=== PATIENT | female | born 1940 | race Caucasian/White ===

== ENCOUNTER 2021-11-14 08:43 | Emergency (ER) | payer OTHER ==
[~2021-11-14] VITALS: Ht 160 cm; Wt 60.3 kg
--- NOTE | 2021-11-14 08:55 | NUR ---
Patient to ER bed 7 to gown for evaluation. Side rails up. Report given to Sushil PERALTA.
[2021-11-14 09:00] VITALS: BP_SYST 126
--- NOTE | 2021-11-14 09:02 | NUR ---
ER at bedside examining patient.
[2021-11-14] MEDS ORDERED: HYDROcodone/ACETAMIN 5-325 MG TAB (NORCO/ VICODIN) PO ONE (11:00)
[2021-11-14] MEDS ORDERED: HYDR-3917 PO (11:09)
--- NOTE | 2021-11-14 11:58 | NUR ---
Patient given written and verbal discharge instructions and verbalizes understanding. ER MD discussed with patient the results and treatment provided. Patient in stable condition. Rx of given. Patient educated on pain management and to follow up with PMD. Pain Scale [2/10]. Opportunity for questions provided and answered. Medication side effect fact sheet provided.
--- NOTE | 2021-11-14 11:59 | NUR ---
A/OX4 VSS VERBALIZED UNDERSTANDING OF DC INSTRUCTIONS , ALL QUESTIONS ANSWERED, ASSISTANCE WITH WHEELCHAIR
== END 2021-11-14 11:59 | disposition home or self-care (01) ==
LOC: SED 08:43
DX: M75.31 Calcific tendinitis of right shoulder (principal)
CPT/HCPCS: 73030; 99283

== ENCOUNTER 2022-09-22 02:35 | Emergency (ER) | payer OTHER ==
[~2022-09-22] VITALS: Ht 157.5 cm; Wt 60.8 kg
[~2022-09-22 02:35] MED LIST: HYDR-3917 PO
[2022-09-22 02:40] VITALS: BP_SYST 170
[2022-09-22] MEDS ORDERED: HYDROcodone/ACETAMIN 5-325 MG TAB (NORCO/ VICODIN) PO ONE (03:00)
[2022-09-22 04:11] LABS: ANION GAP 11 (5-15); CALCIUM 8.1 mg/dL (8.4-11.0); CHLORIDE 97 mmol/L (98-107); GLUCOSE 95 mg/dL (70-99); UREA NITROGEN, BLOOD 12 mg/dL (8-21)
[2022-09-22 04:13] LABS: INR 1.7 (0.8-1.2); PROTHROMBIN TIME 16.7 SECS (9.5-12.5)
[2022-09-22 04:37] LABS: BASOPHILS % (AUTO) 0.4 % (0.0-2.0); EOSINOPHILS # (AUTO) 0.2 K/uL (0.0-0.4); EOSINOPHILS % (AUTO) 2.3 % (0.0-4.0); HEMATOCRIT 38.1 % (36-48); HEMOGLOBIN 12.9 g/dL (12.0-16.0); LYMPHOCYTES # (AUTO) 0.9 K/uL (1.0-5.5); LYMPHOCYTES % (AUTO) 12.1 % (20.5-51.5); MEAN CORPUSCULAR HEMOGLOBIN 32 pg (27-31); MEAN CORPUSCULAR HGB CONC 34 % (32-36); MEAN CORPUSCULAR VOLUME 94 fL (79.0-98.0); MONOCYTES # (AUTO) 0.9 K/uL (0.0-1.0); MONOCYTES % (AUTO) 12.1 % (1.7-9.3); NEUTROPHILS # (AUTO) 5.4 K/uL (1.8-7.7); NEUTROPHILS % (AUTO) 73.1 % (40.0-70.0); PLATELET COUNT (AUTO) 148 K/uL (130-430); RED BLOOD CELL COUNT(AUTO) 4.06 MIL/uL (4.2-6.2); RED CELL DISTRIBUTION WIDTH 14.3 % (9.0-15.0); WHITE BLOOD COUNT (AUTO) 7.4 K/uL (4.8-10.8)
[2022-09-22] MEDS ORDERED: HYDR-3917 PO (04:51)
[2022-09-22 05:05] VITALS: BP_SYST 138
== END 2022-09-22 05:06 | disposition home or self-care (01) ==
LOC: SED 02:35
DX: S52.021A Displaced fracture of olecranon process without intraarticular extension of right ulna, initial encounter for closed fracture (principal); I10 Essential (primary) hypertension; Z79.01 Long term (current) use of anticoagulants; Z79.899 Other long term (current) drug therapy; W18.40XA Slipping, tripping and stumbling without falling, unspecified, initial encounter; Y93.89 Activity, other specified; Y92.89 Other specified places as the place of occurrence of the external cause; Y99.8 Other external cause status
CPT/HCPCS: 36415; 70450-TC; 72125-TC; 76376; 80048; 85025; 85610-TC; 99284

== ENCOUNTER 2022-09-29 10:30 | Emergency (ER) | payer OTHER ==
[~2022-09-29] VITALS: Ht 157.5 cm; Wt 60.8 kg
--- NOTE | 2022-09-29 10:35 | NUR ---
Patient to ER bed 05 to gown for evaluation. Side rails up. Report given to KARYN FRAGA.
--- NOTE | 2022-09-29 10:38 | NUR ---
ER Dr. Yee at bedside examining patient.
[2022-09-29 10:40] VITALS: BP_SYST 148
--- NOTE | 2022-09-29 10:45 | NUR ---
Patient BIB spouse from home. Chief Complaint: Abdominal pain and constipation. Patient a&ox4 and stable. Patient denies allergies to food or medication. Patient has hx of right arm fracture, and has recently been started on opioid for pain and abdominal discomfort started immediately after per patient.
[2022-09-29] MEDS ORDERED: MAGN296S8 PO (11:10)
[2022-09-29] MEDS ORDERED: KETOROLAC TROMETHAMINE 60 MG/2 ML VIAL IM ONE (11:15)
--- NOTE | 2022-09-29 11:19 | NUR ---
Patient verified name and . Patient denies allergies. Patient agreed to the ordered dose of Toradol prior to administration. 60mg of ibuprofen was given IM in right ventral gluteal muscle. Patient tolerated well.
--- NOTE | 2022-09-29 12:09 | NUR ---
Patient given written and verbal discharge instructions and verbalizes understanding. ER MD Yee discussed with patient the results and treatment provided. Patient in stable condition. ID arm band removed. Patient educated on pain management and to follow up with PMD. Opportunity for questions provided and answered. Patient discharged a&ox4 and stable walking out with spouse.
== END 2022-09-29 12:09 | disposition home or self-care (01) ==
LOC: SED 10:30
DX: S52.021A Displaced fracture of olecranon process without intraarticular extension of right ulna, initial encounter for closed fracture (principal); K59.00 Constipation, unspecified; R10.9 Unspecified abdominal pain; I10 Essential (primary) hypertension; Z79.899 Other long term (current) drug therapy; X58.XXXA Exposure to other specified factors, initial encounter; Y93.89 Activity, other specified; Y92.89 Other specified places as the place of occurrence of the external cause; Y99.8 Other external cause status
CPT/HCPCS: 99283; 96372; J1885

== ENCOUNTER 2022-10-01 10:54 | Inpatient (IN) | payer OTHER ==
[~2022-10-01] VITALS: Ht 152.4 cm; Wt 59.0 kg
[~2022-10-01 10:54] MED LIST changes: +MAGN296S8 PO
[2022-10-01 11:03] VITALS: BP_SYST 152
--- NOTE | 2022-10-01 11:15 | NUR ---
RECEIVED PT FROM FABIAN PETERSON. PT BIB FOR C/O LOWER BACK PAIN. ASSUMED CARE.
[2022-10-01] MEDS ORDERED: dilTIAZem HCL IVP 5 MG/ML VIAL IVP ONE (11:30)
--- NOTE | 2022-10-01 11:32 | NUR ---
AT BEDSIDE TO ASSESS PT.
[2022-10-01 11:55] LABS: BASOPHILS % (AUTO) 0.2 % (0.0-2.0); EOSINOPHILS % (AUTO) 0.2 % (0.0-4.0); HEMATOCRIT 38.5 % (36-48); HEMOGLOBIN 13.4 g/dL (12.0-16.0); LYMPHOCYTES # (AUTO) 0.3 K/uL (1.0-5.5); LYMPHOCYTES % (AUTO) 3.3 % (20.5-51.5); MEAN CORPUSCULAR HEMOGLOBIN 32 pg (27-31); MEAN CORPUSCULAR HGB CONC 35 % (32-36); MEAN CORPUSCULAR VOLUME 93 fL (79.0-98.0); MONOCYTES # (AUTO) 0.9 K/uL (0.0-1.0); MONOCYTES % (AUTO) 9.8 % (1.7-9.3); NEUTROPHILS # (AUTO) 7.7 K/uL (1.8-7.7); NEUTROPHILS % (AUTO) 86.5 % (40.0-70.0); PLATELET COUNT (AUTO) 224 K/uL (130-430); RED BLOOD CELL COUNT(AUTO) 4.16 MIL/uL (4.2-6.2); RED CELL DISTRIBUTION WIDTH 13.9 % (9.0-15.0); WHITE BLOOD COUNT (AUTO) 8.9 K/uL (4.8-10.8)
[2022-10-01 12:02] LABS: ANION GAP 11 (5-15); CALCIUM 8.3 mg/dL (8.4-11.0); CHLORIDE 94 mmol/L (98-107); CREATININE 0.58 mg/dL (0.55-1.30); GLUCOSE 112 mg/dL (70-99); UREA NITROGEN, BLOOD 11 mg/dL (8-21)
[2022-10-01 12:07] LABS: INR 1.9 (0.8-1.2); PROTHROMBIN TIME 19.4 SECS (9.5-12.5)
[2022-10-01 12:08] LABS: ALANINE AMINOTRANSFERASE 19 U/L (12-78); ALBUMIN 3.2 g/dL (3.4-4.8); ASPARTATE AMINOTRANSFERASE 24 U/L (10-37); TOTAL BILIRUBIN 2.2 mg/dL (0.0-1.0)
[2022-10-01] MEDS ORDERED: HYDR-4037 PO (15:13)
[2022-10-01] MEDS ORDERED: LEVO25TA7 PO (15:13)
[2022-10-01] MEDS ORDERED: WARF1TAB84 PO (15:13)
[2022-10-01] MEDS ORDERED: METO25TA3 PO (15:13)
--- NOTE | 2022-10-01 15:20 | NUR ---
Medication reconciliation completed with information provided by patient. Any prior medication reconciliation on file was reviewed and corrected.
--- NOTE | 2022-10-01 16:01 | NUR ---
DR. DAVIDSON AT BEDSIDE TO ASSESS PT.
[2022-10-01] MEDS ORDERED: HYDROcodone/ACETAMIN 5-325 MG TAB (NORCO/ VICODIN) PO PRN (16:15)
--- NOTE | 2022-10-01 17:12 | NUR ---
Admit bed requested Patient will be admitted to care of . Admitted to TELE unit. Diagnosis FALL Inpatient (Yes or No) Y Observation (Yes or No) N Orientation concerns or request close to nursing station (Yes or No) N Covid Status NA On vent or bipap N Isolation requirements N Needs a sitter N From Home (Yes or if No enter name of facility) Y Requires Dialysis (Yes or No) N Med Rec Completed (Yes of No) Y
--- NOTE | 2022-10-01 17:13 | NUR ---
Admit bed requested Patient will be admitted to care of . Admitted to TELEMETRY unit. Diagnosis FALL Inpatient (Yes or No) YES Observation (Yes or No) NO Orientation concerns or request close to nursing station (Yes or No) NO Covid Status N/A On vent or bipap NO Isolation requirements NONE Needs a sitter NO From Home (Yes or if No enter name of facility) NO Requires Dialysis (Yes or No) NO Med Rec Completed (Yes of No) YES
--- NOTE | 2022-10-01 18:30 | NUR ---
[facility] Admission Nurse Notes: Patient laying in bed. A/O x 2, patient occasionally moaning when touched. Patient breathing even on room air. Pain and mild distress, no SOB. Carlos Enrique is at bedside. Bed is locked in lowest position. Call light within reach, all needs met, will continue with plan of care.
[2022-10-01 18:35] VITALS: BP_SYST 154
--- NOTE | 2022-10-01 18:36 | NUR ---
Patient will be admitted to care of Dr. Pierce. Admitted to telemetry unit. Will go to room 105a. Belongings list completed. Complete and up to date summary report printed. SBAR report to be given at bedside with opportunity for questions.
--- NOTE | 2022-10-01 18:44 | NUR ---
Patient will be admitted to care of DR. DAVIDSON. Admitted to TELEMETRY unit. Will go to room 105A. Belongings list completed. Complete and up to date summary report printed. SBAR report to be given at bedside with opportunity for questions.
[2022-10-01] MEDS ORDERED: WARFARIN SODIUM 1 MG TABLET PO ONE (19:00)
--- NOTE | 2022-10-01 19:25 | NUR ---
Closing Nurse Notes: Patient stable, A/O x2, Indonesian speaking. Patient breathing even and unlabored on room air. Moderate pain with distress, no SOB. Bed is locked in lowest position. at bedside. Call light within reach, all needs met, will endorse pain and elevated blood pressure results to barking machine feeder nurse RN.
[2022-10-01 20:00] VITALS: BP_SYST 156
[2022-10-01 20:22] LABS: PROTHROMBIN TIME 20.5 SECS (9.5-12.5)
[2022-10-01] MEDS: hydrALAZINE HCL 10 MG TABLET PO SCH (21:26)
[2022-10-01 23:56] VITALS: BP_SYST 123
--- NOTE | 2022-10-02 02:44 | NUR ---
Consultation Paged Reason for Consultation: fx humerus and vertebrae Was consult called: Y Person who was notified: Sophia Consulting Physician: Vladislav Montenegro Ordering Physician: Dr. Pierce
[2022-10-02 05:11] LABS: BASOPHILS % (AUTO) 0.6 % (0.0-2.0); EOSINOPHILS # (AUTO) 0.1 K/uL (0.0-0.4); EOSINOPHILS % (AUTO) 1.1 % (0.0-4.0); HEMATOCRIT 36.4 % (36-48); HEMOGLOBIN 12.7 g/dL (12.0-16.0); LYMPHOCYTES # (AUTO) 0.6 K/uL (1.0-5.5); MEAN CORPUSCULAR HEMOGLOBIN 32 pg (27-31); MEAN CORPUSCULAR HGB CONC 35 % (32-36); MEAN CORPUSCULAR VOLUME 92 fL (79.0-98.0); MONOCYTES # (AUTO) 0.9 K/uL (0.0-1.0); MONOCYTES % (AUTO) 13.3 % (1.7-9.3); NEUTROPHILS # (AUTO) 5.2 K/uL (1.8-7.7); PLATELET COUNT (AUTO) 228 K/uL (130-430); RED BLOOD CELL COUNT(AUTO) 3.95 MIL/uL (4.2-6.2); RED CELL DISTRIBUTION WIDTH 13.7 % (9.0-15.0); WHITE BLOOD COUNT (AUTO) 6.8 K/uL (4.8-10.8)
[2022-10-02 06:02] LABS: PROTHROMBIN TIME 20.1 SECS (9.5-12.5)
[2022-10-02 06:06] LABS: ANION GAP 10 (5-15); CALCIUM 8.1 mg/dL (8.4-11.0); CHLORIDE 98 mmol/L (98-107); CREATININE 0.51 mg/dL (0.55-1.30); GLUCOSE 79 mg/dL (70-99); UREA NITROGEN, BLOOD 15 mg/dL (8-21)
[2022-10-02 08:00] VITALS: BP_SYST 131
--- NOTE | 2022-10-02 08:01 | NUR ---
CALLED ATTENDING MD DR. DAVIDSON FOR THE SECOND TIME RE: CARDIOLOGY CONSULT. Addendum: 10/02/22 at 0802 by Sarah Vyas [place]/ SPOKE TO MIKE.
--- NOTE | 2022-10-02 08:02 | NUR ---
TEXTED ATTENDING MD DR DAVIDSON, RE: CARDIOLOGY CONSULT.
[2022-10-02] MEDS: hydrALAZINE HCL 10 MG TABLET PO SCH ×2 (08:07→21:16)
[2022-10-02] MEDS ORDERED: *LOVENOX 1MG/KG Q12H/PHARMACY XX PRN (08:30)
[2022-10-02] MEDS ORDERED: METOPROLOL TARTRATE 5 MG/5 ML VIAL IVP ONE (08:30)
[2022-10-02] MEDS ORDERED: POTASSIUM CHLORIDE 40 MEQ in NS 250 ML IV ONE (08:30)
[2022-10-02] MEDS ORDERED: METOPROLOL SUCCINATE 25 MG TAB.SR.24H (TOPROL XL) PO SCH (09:00)
--- NOTE | 2022-10-02 09:49 | NUR ---
CARDIOLOGY CONSULT WITH DR BENITEZ WAS ORDERED BY DR DAVIDSON, ATTENDING MD RE: CARDIAC CLEARANCE AND CARDIAC ARRYTHMIAS.
--- NOTE | 2022-10-02 10:21 | NUR ---
CONSULTATION: REASON FOR CONSULT: UNCONTROLLED A-FIB CONSULTING PHYSICIAN: ELI ORDERED BY: STUART SPOKE WITH GERMAINE [phone]
[2022-10-02 11:13] VITALS: BP_SYST 140
[2022-10-02] MEDS ORDERED: MELOXICAM 7.5 MG TABLET PO ONE (13:00)
[2022-10-02] MEDS ORDERED: LIDOCAINE PATCH 5% 1 EA TP ONE (13:00)
--- NOTE | 2022-10-02 14:26 | NUR ---
>>>PT NOTES<<< HOLD PT EVAL AT THIS TIME PER RN DUE TO PENDING ORTHOPEDIC SURGERY.
[2022-10-02 15:01] VITALS: BP_SYST 112
--- NOTE | 2022-10-02 18:12 | NUR ---
Received pt arousable but drowsy. SpO2 taken on finger was in the 70s. On ear in the 90s. Proventil given but pt remains drowsy. Dressing change with optifoam done on sacrum and R arm. Brusing on R flank. Pictures done for sacrum, R arm, and R flank. at bedside.
[2022-10-02] MEDS: METOPROLOL TARTRATE 5 MG/5 ML VIAL IVP PRN (18:26)
--- NOTE | 2022-10-02 18:27 | NUR ---
Received pt with HR in 140s. Scheduled Toprolol XL 25mg given and additional 5mg IVP Lopressor. HR came down to low 100s. Pt started on cardiac diet. 40meq K rider given for 3.[address] Holloway saw pt and has not given cardiac clearance for surgery. At 1800 BP in 140s-150s again. Paged Dr Holloway. He increased Tropolol XL to 25mg BID and ordered PRN Lopressor 2.5mg Q6 for HR greater than 120. Will continue to monitor.
[2022-10-02 20:00] VITALS: BP_SYST 116
[2022-10-02] MEDS: METOPROLOL SUCCINATE 25 MG TAB.SR.24H (TOPROL XL) PO SCH (21:17)
[2022-10-03 00:20] LABS: BILIRUBIN,URINE NEGATIVE (NEGATIVE); CLARITY/URINE CLOUDY (CLEAR); COLOR,URINE YELLOW (YELLOW); GLUCOSE,URINE NEGATIVE (NEGATIVE); KETONES,URINE TRACE (NEGATIVE); NITRITE, URINE NEGATIVE (NEGATIVE); PH,URINE 7.5 (5.0-8.0); PROTEIN URINE TRACE (NEGATIVE)
[2022-10-03 00:29] LABS: BLOOD, URINE TRACE (NEGATIVE)
[2022-10-03 00:30] LABS: LEUKOCYTE ESTERASE ,URINE TRACE (NEGATIVE)
[2022-10-03 00:32] LABS: BACTERIA,URINE MANY /HPF (None Seen); TRIPLE PHOSPHATE CRYSTAL,UR 30-50 /HPF (None Seen)
[2022-10-03 01:14] VITALS: BP_SYST 115
[2022-10-03 05:12] LABS: BASOPHILS % (AUTO) 0.4 % (0.0-2.0); EOSINOPHILS # (AUTO) 0.1 K/uL (0.0-0.4); EOSINOPHILS % (AUTO) 1.5 % (0.0-4.0); HEMATOCRIT 38.1 % (36-48); HEMOGLOBIN 13.1 g/dL (12.0-16.0); LYMPHOCYTES # (AUTO) 0.6 K/uL (1.0-5.5); MEAN CORPUSCULAR HEMOGLOBIN 32 pg (27-31); MEAN CORPUSCULAR HGB CONC 34 % (32-36); MEAN CORPUSCULAR VOLUME 92 fL (79.0-98.0); MONOCYTES # (AUTO) 1.2 K/uL (0.0-1.0); MONOCYTES % (AUTO) 14.9 % (1.7-9.3); NEUTROPHILS # (AUTO) 6.4 K/uL (1.8-7.7); NEUTROPHILS % (AUTO) 76.2 % (40.0-70.0); PLATELET COUNT (AUTO) 256 K/uL (130-430); RED BLOOD CELL COUNT(AUTO) 4.14 MIL/uL (4.2-6.2); RED CELL DISTRIBUTION WIDTH 13.8 % (9.0-15.0); WHITE BLOOD COUNT (AUTO) 8.4 K/uL (4.8-10.8)
[2022-10-03 05:38] LABS: ANION GAP 8 (5-15); CHLORIDE 99 mmol/L (98-107); CREATININE 0.52 mg/dL (0.55-1.30); GLUCOSE 88 mg/dL (70-99); UREA NITROGEN, BLOOD 19 mg/dL (8-21)
[2022-10-03 05:56] LABS: INR 2.2 (0.8-1.2); PROTHROMBIN TIME 21.5 SECS (9.5-12.5)
--- NOTE | 2022-10-03 06:00 | NUR ---
RT FA REMAINS IN SLING FINGERS ARE WARM TO TOUCH SPENT A FAIR NIGHT
[2022-10-03 07:20] VITALS: BP_SYST 131
[2022-10-03 08:00] VITALS: BP_SYST 131
[2022-10-03] MEDS: HYDROcodone/ACETAMIN 5-325 MG TAB (NORCO/ VICODIN) PO PRN (08:05)
[2022-10-03] MEDS: METOPROLOL SUCCINATE 25 MG TAB.SR.24H (TOPROL XL) PO SCH ×2 (08:06→20:08)
[2022-10-03] MEDS: hydrALAZINE HCL 10 MG TABLET PO SCH ×2 (08:07→20:08)
[2022-10-03] MEDS: LIDOCAINE PATCH 5% 1 EA TP SCH (08:09)
[2022-10-03] MEDS ORDERED: PHYTONADIONE Non-Formulary 5 MG TABLET PO ONE (08:30)
[2022-10-03] MEDS ORDERED: MELOXICAM 7.5 MG TABLET PO SCH (09:00)
[2022-10-03] MEDS ORDERED: PHYTONADIONE (Vitamin K) Oral Solution PO ONE ×3 (09:45→11:00)
[2022-10-03] MEDS ORDERED: POTASSIUM CHLORIDE 20 MEQ TAB.PRT.SR PO ONE (10:15)
[2022-10-03] MEDS ORDERED: FUROSEMIDE 20 MG/2 ML VIAL IVP ONE (10:15)
[2022-10-03 11:25] VITALS: BP_SYST 94
[2022-10-03 13:03] LABS: BASOPHILS % (AUTO) 0.5 % (0.0-2.0); EOSINOPHILS # (AUTO) 0.1 K/uL (0.0-0.4); EOSINOPHILS % (AUTO) 1.1 % (0.0-4.0); HEMATOCRIT 40.7 % (36-48); HEMOGLOBIN 13.9 g/dL (12.0-16.0); LYMPHOCYTES # (AUTO) 0.7 K/uL (1.0-5.5); LYMPHOCYTES % (AUTO) 7.6 % (20.5-51.5); MEAN CORPUSCULAR HEMOGLOBIN 32 pg (27-31); MEAN CORPUSCULAR HGB CONC 34 % (32-36); MEAN CORPUSCULAR VOLUME 93 fL (79.0-98.0); MONOCYTES # (AUTO) 0.8 K/uL (0.0-1.0); MONOCYTES % (AUTO) 7.8 % (1.7-9.3); NEUTROPHILS # (AUTO) 8.2 K/uL (1.8-7.7); PLATELET COUNT (AUTO) 260 K/uL (130-430); RED BLOOD CELL COUNT(AUTO) 4.37 MIL/uL (4.2-6.2); RED CELL DISTRIBUTION WIDTH 13.9 % (9.0-15.0); WHITE BLOOD COUNT (AUTO) 9.8 K/uL (4.8-10.8)
[2022-10-03 13:13] LABS: ANION GAP 6 (5-15); CALCIUM 8.1 mg/dL (8.4-11.0); CHLORIDE 96 mmol/L (98-107); CREATININE 0.66 mg/dL (0.55-1.30); GLUCOSE 111 mg/dL (70-99); UREA NITROGEN, BLOOD 21 mg/dL (8-21)
--- NOTE | 2022-10-03 14:55 | NUR ---
PHYSICAL THERAPY CO-SIGN The Physical Therapy Progress Notes documented by Easement Worker have been reviewed. Reviewed/Co-Signed by: Brian Schwab Documentation Done by:RONAK ORLANDO Addendum: 10/03/22 at 1455 by Brian Schwab PT Amended: Links added.
[2022-10-03 15:15] VITALS: BP_SYST 101
--- NOTE | 2022-10-03 18:05 | NUR ---
No runs of sinus tach today. Vitamin K given for INR of 2.2. TLSO was delivered today. Pt given Hope this am and since has had no complaints of pain. Pt will have surgery tomorrow pending cardiac clearance.
--- NOTE | 2022-10-03 19:15 | NUR ---
OPENING NOTE REPORT RECEIVED FROM DAYSHIFT NURSE. PATIENT RECEIVED LYING IN BED, AWAKE, WATCHING TV, NO S/S OF ACUTE DISTRESS, PATIENT DENIES PAIN, STATES SHE IS COMFORTABLE. BREATHING EVEN AND UNLABORED. IV SITE PATENT, NO SIGNS OF INFILTRATION OR INFECTION NOTED. SLIGHT ATTACHED TO RIGHT ARM. CALL LIGHT WITH PATIENT. BED ALARM ON. BED IS LOCKED AND AT LOWEST POSITION. WILL CONTINUE TO MONITOR.
[2022-10-03 20:00] VITALS: BP_SYST 115
--- NOTE | 2022-10-03 23:00 | NUR ---
ROUNDS PATIENT IN BED, NO SIGNS OF DISCOMFORT. RESTING. CHEST RISE AND FALL EVEN BILATERALLY. ALL NEEDS MET. WILL MONITOR.
[2022-10-03] MEDS: METOPROLOL TARTRATE 5 MG/5 ML VIAL IVP PRN (23:02)
[2022-10-04] VITALS: BP_SYST 125
--- NOTE | 2022-10-04 03:00 | NUR ---
ROUNDS NO CHANGE FROM PREVIOUS. ALL NEEDS MET. WILL MONITOR.
[2022-10-04 05:45] LABS: BASOPHILS % (AUTO) 0.6 % (0.0-2.0); EOSINOPHILS # (AUTO) 0.3 K/uL (0.0-0.4); EOSINOPHILS % (AUTO) 3.8 % (0.0-4.0); HEMOGLOBIN 12.8 g/dL (12.0-16.0); LYMPHOCYTES # (AUTO) 0.7 K/uL (1.0-5.5); MEAN CORPUSCULAR HEMOGLOBIN 32 pg (27-31); MEAN CORPUSCULAR HGB CONC 35 % (32-36); MEAN CORPUSCULAR VOLUME 92 fL (79.0-98.0); MONOCYTES # (AUTO) 0.9 K/uL (0.0-1.0); NEUTROPHILS # (AUTO) 5.4 K/uL (1.8-7.7); NEUTROPHILS % (AUTO) 73.6 % (40.0-70.0); PLATELET COUNT (AUTO) 241 K/uL (130-430); RED BLOOD CELL COUNT(AUTO) 4.01 MIL/uL (4.2-6.2); RED CELL DISTRIBUTION WIDTH 14.1 % (9.0-15.0); WHITE BLOOD COUNT (AUTO) 7.4 K/uL (4.8-10.8)
[2022-10-04 05:58] LABS: ANION GAP 6 (5-15); CALCIUM 7.7 mg/dL (8.4-11.0); CHLORIDE 99 mmol/L (98-107); CREATININE 0.44 mg/dL (0.55-1.30); GLUCOSE 86 mg/dL (70-99); UREA NITROGEN, BLOOD 17 mg/dL (8-21)
[2022-10-04 05:59] LABS: INR 1.3 (0.8-1.2); PROTHROMBIN TIME 13.1 SECS (9.5-12.5)
--- NOTE | 2022-10-04 06:05 | NUR ---
CLOSING NOTE PATIENT IN BED, NO S/S OF ACUTE DISTRESS. BREATHING EVEN AND UNLABORED. IV SITE PATENT, NO SIGNS OF INFILTRATION OR INFECTION NOTED. SLING ON RIGHT ARM ATTACHED. ALL NEEDS MET THROUGHOUT SHIFT. FALL, SAFETY PRECAUTIONS MAINTAINED THROUGHOUT SHIFT. WILL CONTINUE TO MONITOR UNTIL PATIENT CARE IS ENDORSED TO ONCOMING DAYSHIFT NURSE.
[2022-10-04 08:00] VITALS: BP_SYST 123
[2022-10-04] MEDS: hydrALAZINE HCL 10 MG TABLET PO SCH ×2 (09:00→20:23)
[2022-10-04] MEDS: LIDOCAINE PATCH 5% 1 EA TP SCH (09:10)
[2022-10-04] MEDS: METOPROLOL SUCCINATE 25 MG TAB.SR.24H (TOPROL XL) PO SCH ×2 (10:03→20:22)
[2022-10-04 11:07] VITALS: BP_SYST 127
[2022-10-04] MEDS ORDERED: KETOROLAC TROMETHAMINE 30 MG VIAL ONE (13:00)
[2022-10-04] MEDS ORDERED: PROPOFOL 200MG/ 20ML VIAL (DIPRIVAN) IV ONE (13:00)
[2022-10-04] MEDS ORDERED: MIDAZOLAM HCL 2 MG/2 ML VIAL (VERSED) ONE (13:00)
[2022-10-04] MEDS ORDERED: ONDANSETRON HCL 4 MG/2 ML VIAL ONE (13:00)
[2022-10-04] MEDS ORDERED: DESFLURANE 15 MIN GAS INH ONE (13:00)
[2022-10-04] MEDS ORDERED: LIDOCAINE 2%, 20 ML MDV ONE (13:00)
[2022-10-04] MEDS ORDERED: DEXAMETHASONE SOD PHOSPHATE 4 MG/ML VIAL ONE (13:00)
[2022-10-04] MEDS ORDERED: ROCURONIUM BROMIDE 10 MG/ML (ZEMURON) ONE (13:00)
[2022-10-04] MEDS ORDERED: cefTRIAXone 1 GM VIAL ONE (13:00)
[2022-10-04] MEDS ORDERED: LR 1,000 ML IV.SOLN IV ONE (13:00)
[2022-10-04] MEDS ORDERED: METOPROLOL TARTRATE 5 MG/5 ML VIAL ONE (13:00)
[2022-10-04] MEDS ORDERED: cefTRIAXone 1 GM in D5W 50 ML IV SCH (13:00)
[2022-10-04] MEDS ORDERED: BUPIVACAINE /PF 0.25% 30 ML VIAL INJ ONE (13:00)
[2022-10-04] MEDS ORDERED: SUGAMMADEX SODIUM 200 MG/2 ML VIAL IV ONE (13:00)
[2022-10-04] MEDS ORDERED: HYDROmorphone 1 MG/ML INJ. CARTRIDGE IVP PRN ×2 (14:15)
[2022-10-04] MEDS ORDERED: METOCLOPRAMIDE HCL 10 MG/2 ML VIAL IVP PRN (14:15)
[2022-10-04] MEDS ORDERED: LABETALOL 100 MG/ 20ML VIAL IVP PRN (14:15)
[2022-10-04] MEDS ORDERED: MEPERIDINE HCL/PF 25 MG/ML DISP.SYRIN IVP PRN (14:15)
[2022-10-04 14:17] VITALS: BP_SYST 127
[2022-10-04] MEDS ORDERED: ACETAMINOPHEN I.V. 1000 MG 100 ML IV ONE (14:21)
--- NOTE | 2022-10-04 16:17 | NUR ---
Received pt back from surgery,S/P right elbow ORIF,right arm in splint with alek warp on dry and intact neurovascular check normal,wearing right arm sling,elevated RUE and NWB to RUE per post op order O2 sat 99% on 2L/NC,afib per telemetry hr 99-110's,no c/o pain or discomfort,IVF continue infusing needs attended,safety maintained.
[2022-10-04 16:45] VITALS: BP_SYST 142
--- NOTE | 2022-10-04 18:00 | NUR ---
HR up to 120's,BP 150/90,give lopressor 2.5 mg IV as prn order.
[2022-10-04] MEDS: LR 1,000 ML IV SCH (18:14)
[2022-10-04] MEDS: METOPROLOL TARTRATE 5 MG/5 ML VIAL IVP PRN (18:14)
[2022-10-04] MEDS: HYDROcodone/ACETAMIN 5-325 MG TAB (NORCO/ VICODIN) PO PRN (18:56)
--- NOTE | 2022-10-04 19:04 | NUR ---
HR decreased to 90-110,BP 116/68,pt c/o pain in right elbow,give norco 1 tab po as prn order for pain,voided pedro urine via purwick.report endorsed to restaurant shift supervisor nurse.
[2022-10-04 19:35] VITALS: BP_SYST 126
--- NOTE | 2022-10-04 19:35 | NUR ---
PM ASSESSMENT; -Pt is a/ox3, resting in bed. Pt denies any chest pain,pain,sob,or any acute distress. IVF infusing well, no s/s any infiltration noted. Discussed poc, pain mgmt, all safety measures with pt and spouse, they verbalized understanding. Fall precaution in place, bed alarmed, side rails x3, call light w/in reach. Drsg cdi of RUE with sling applied, pt denies any tingling,numbness, or pain, elevated with pillow. cont to monitor pt.
--- NOTE | 2022-10-05 00:20 | NUR ---
ROUNDS; -Pt is asleep. No s/s any acute distress noted. All safety measures in place. Call light w/in reach. Cont to monitor pt.
[2022-10-05 00:31] VITALS: BP_SYST 99
[2022-10-05] MEDS: LR 1,000 ML IV SCH (00:41)
--- NOTE | 2022-10-05 04:00 | NUR ---
ROUNDS; -Pt is asleep. No s/s any acute distress noted. All safety measures in place. Call light w/in reach. Cont to monitor pt.
--- NOTE | 2022-10-05 06:25 | NUR ---
CLOSING NOTES; -Pt is resting in bed comfortably. NO s/s any chest pain,pain,sob,or any acute distress noted. IVF infusing well, no s/s any infiltration noted. Fall precaution in place, bed alarmed, side rails x3, call light w/in reach. Drsg cdi of RUE with sling applied, pt denies any tingling,numbness, or pain, elevated with pillow. Pt's condition stable. will endorse to next nurse to continuity of care.
[2022-10-05 06:34] LABS: ANION GAP 9 (5-15); CALCIUM 8.2 mg/dL (8.4-11.0); CHLORIDE 98 mmol/L (98-107); CREATININE 0.55 mg/dL (0.55-1.30); GLUCOSE 127 mg/dL (70-99); UREA NITROGEN, BLOOD 18 mg/dL (8-21)
[2022-10-05 06:47] LABS: BASOPHILS % (AUTO) 0.1 % (0.0-2.0); HEMATOCRIT 37.8 % (36-48); HEMOGLOBIN 12.9 g/dL (12.0-16.0); LYMPHOCYTES # (AUTO) 0.4 K/uL (1.0-5.5); LYMPHOCYTES % (AUTO) 5.9 % (20.5-51.5); MEAN CORPUSCULAR HEMOGLOBIN 32 pg (27-31); MEAN CORPUSCULAR HGB CONC 34 % (32-36); MEAN CORPUSCULAR VOLUME 93 fL (79.0-98.0); MONOCYTES # (AUTO) 0.2 K/uL (0.0-1.0); MONOCYTES % (AUTO) 3.4 % (1.7-9.3); NEUTROPHILS # (AUTO) 5.9 K/uL (1.8-7.7); NEUTROPHILS % (AUTO) 90.6 % (40.0-70.0); PLATELET COUNT (AUTO) 259 K/uL (130-430); RED BLOOD CELL COUNT(AUTO) 4.07 MIL/uL (4.2-6.2); WHITE BLOOD COUNT (AUTO) 6.5 K/uL (4.8-10.8)
--- NOTE | 2022-10-05 07:30 | NUR ---
Initial note: report received from Teressa. patient is awake alert x3. Call light in reach. Bed in the lowest position and side rails x3 up. Assessment is done and vital checked. No pain or discomfort at this time. Will continue patient care.
[2022-10-05 08:00] VITALS: BP_SYST 141
[2022-10-05] MEDS: METOPROLOL SUCCINATE 25 MG TAB.SR.24H (TOPROL XL) PO SCH ×2 (08:48→21:37)
[2022-10-05] MEDS: hydrALAZINE HCL 10 MG TABLET PO SCH ×2 (08:49→21:37)
[2022-10-05] MEDS: LIDOCAINE PATCH 5% 1 EA TP SCH (08:49)
[2022-10-05 09:26] LABS: INR 1.2 (0.8-1.2)
--- NOTE | 2022-10-05 11:23 | NUR ---
Dietitian Recommendations * Continue regular diet * Ordered Ruy BID, orange flavor (provides 180 kcal and 5 g PRO) for muscle preservation GS, MPH, RD Please refer to RD Assessment for further details. Thanks! Addendum: 10/05/22 at [address] Amended: Links added.
[2022-10-05 11:52] VITALS: BP_SYST 136
--- NOTE | 2022-10-05 12:00 | NUR ---
Note: patient is awake alert x3. is at the bedside. No pain or discomfort at this time. Call light in reach. Bed in the lowest position and side rails x3 up. Will continue to monitor.
--- NOTE | 2022-10-05 13:14 | NUR ---
SNF inquiry sent out waiting for bed availability
[2022-10-05] MEDS: NORMAL SALINE 5 ML DISP.SYRIN IVF SCH ×2 (14:14→21:38)
--- NOTE | 2022-10-05 15:13 | NUR ---
CM: Late entry: spoke with KURT Duvall/[facility]: dcp to home with HH order has changed to snf placement. The order faxed to her as well.
[2022-10-05 16:53] VITALS: BP_SYST 130
--- NOTE | 2022-10-05 17:10 | NUR ---
Note: patient has fever 100.2. Called and spoke to Dr. Viky Higgins with Tylenol as needed order. Noted and carried out.
[2022-10-05] MEDS ORDERED: ACETAMINOPHEN 325 MG TABLET PO PRN (17:15)
[2022-10-05] MEDS: WARFARIN SODIUM 4 MG TABLET PO SCH (17:18)
--- NOTE | 2022-10-05 19:13 | NUR ---
Closing note: Reported to Teressa. patient is awake alert x4. is at the bedside. Bed in the lowest position and side rails x2 up. Call light in reach. Endorse to continue patient care.
[2022-10-05 19:25] VITALS: BP_SYST 142
--- NOTE | 2022-10-05 19:25 | NUR ---
PM ASSESSMENT; -Pt is a/ox3, resting in bed. Pt denies any chest pain,pain,sob,or any acute distress. IV site patent, no s/s any infiltration noted. Discussed poc, pain mgmt, all safety measures with pt and spouse, they verbalized understanding. Fall precaution in place, bed alarmed, side rails x3, call light w/in reach. Drsg cdi of RUE with sling applied, pt denies any tingling,numbness, or pain, elevated with pillow. cont to monitor pt.
--- NOTE | 2022-10-06 01:23 | NUR ---
ROUNDS; -Pt is asleep. No s/s any acute distress noted. All safety measures in place. Call light w/in reach. Cont to monitor pt.
[2022-10-06 01:39] VITALS: BP_SYST 147
[2022-10-06] MEDS ORDERED: Lidocaine Patch 5% TP (02:53)
[2022-10-06] MEDS ORDERED: ACT35 PO (02:53)
[2022-10-06] MEDS ORDERED: METO25TA3 PO (02:53)
[2022-10-06] MEDS ORDERED: WARF4TAB72 PO (02:53)
--- NOTE | 2022-10-06 04:15 | NUR ---
ROUNDS; -Pt is asleep. No s/s any acute distress noted. All safety measures in place. Call light w/in reach. Cont to monitor pt.
[2022-10-06] MEDS: NORMAL SALINE 5 ML DISP.SYRIN IVF SCH ×2 (05:11→13:19)
[2022-10-06] MEDS: HYDROcodone/ACETAMIN 5-325 MG TAB (NORCO/ VICODIN) PO PRN ×2 (05:42→21:01)
[2022-10-06] MEDS ORDERED: RISEDRONATE SODIUM 35 MG TABLET PO SCH (06:00)
--- NOTE | 2022-10-06 06:24 | NUR ---
CLOSING NOTES; -Pt is resting in bed comfortably. NO s/s any chest pain,pain,sob,or any acute distress noted. IV patent in place. Fall precaution in place, bed alarmed, side rails x3, call light w/in reach. Drsg cdi of RUE with sling applied, pt denies any tingling,numbness, or pain, elevated with pillow. Pt's condition stable. will endorse to next nurse to continuity of care.
[2022-10-06 06:59] LABS: ANION GAP 8 (5-15); CALCIUM 7.9 mg/dL (8.4-11.0); CHLORIDE 101 mmol/L (98-107); CREATININE 0.52 mg/dL (0.55-1.30); GLUCOSE 85 mg/dL (70-99); UREA NITROGEN, BLOOD 12 mg/dL (8-21)
[2022-10-06 07:20] LABS: BASOPHILS % (AUTO) 0.3 % (0.0-2.0); EOSINOPHILS # (AUTO) 0.1 K/uL (0.0-0.4); EOSINOPHILS % (AUTO) 0.8 % (0.0-4.0); HEMATOCRIT 35.8 % (36-48); HEMOGLOBIN 12.4 g/dL (12.0-16.0); LYMPHOCYTES # (AUTO) 0.7 K/uL (1.0-5.5); LYMPHOCYTES % (AUTO) 9.9 % (20.5-51.5); MEAN CORPUSCULAR HEMOGLOBIN 32 pg (27-31); MEAN CORPUSCULAR HGB CONC 35 % (32-36); MEAN CORPUSCULAR VOLUME 93 fL (79.0-98.0); MONOCYTES # (AUTO) 0.8 K/uL (0.0-1.0); NEUTROPHILS # (AUTO) 5.9 K/uL (1.8-7.7); PLATELET COUNT (AUTO) 282 K/uL (130-430); RED BLOOD CELL COUNT(AUTO) 3.87 MIL/uL (4.2-6.2); RED CELL DISTRIBUTION WIDTH 13.7 % (9.0-15.0); WHITE BLOOD COUNT (AUTO) 7.6 K/uL (4.8-10.8)
--- NOTE | 2022-10-06 07:30 | NUR ---
Initial note: Report received from Damaris. Patient is awake alert x4. is at the bedside. Bed in the lowest position and side rails x3 up. Call light in reach. Assessment is done and vital checked. No pain or discomfort at this time. Will continue patient care.
[2022-10-06 08:00] VITALS: BP_SYST 130
[2022-10-06] MEDS: hydrALAZINE HCL 10 MG TABLET PO SCH ×2 (08:40→20:59)
[2022-10-06] MEDS: METOPROLOL SUCCINATE 25 MG TAB.SR.24H (TOPROL XL) PO SCH ×2 (08:41→20:59)
[2022-10-06] MEDS: LIDOCAINE PATCH 5% 1 EA TP SCH (08:41)
[2022-10-06 09:32] LABS: INR 1.2 (0.8-1.2); PROTHROMBIN TIME 12.1 SECS (9.5-12.5)
[2022-10-06] MEDS: traMADol HCL HCL 50 MG TABLET (ULTRAM) PO PRN (10:17)
--- NOTE | 2022-10-06 11:56 | NUR ---
spoke with patient spouse and he indicated that patient refuses to go to SNF , wants to discharge home, needs to work with PT and will need Home health when discharged
[2022-10-06 12:49] VITALS: BP_SYST 127
[2022-10-06 16:03] VITALS: BP_SYST 125
--- NOTE | 2022-10-06 16:17 | NUR ---
Note: Called Dr. Viky Higgisn and reported refused SNF. Ok to discharge patient with home health physical therapy.
[2022-10-06] MEDS: WARFARIN SODIUM 4 MG TABLET PO SCH (17:35)
--- NOTE | 2022-10-06 19:32 | NUR ---
Closing Note: reported to Migdalia. Patient is resting on bed. at the bedside. Endorse to continue patient care.
--- NOTE | 2022-10-06 19:45 | NUR ---
opening note, incentive spirometer Received patient awake, resting in bed no distress. IV to LFA is SL. wearing SCD's Safety precautions in place. Demonstrates 1200 ml with incentive spirometer. VSS.
[2022-10-06 20:00] VITALS: BP_SYST 125
--- NOTE | 2022-10-06 21:05 | NUR ---
meds, Tabernash scheduled meds given. Tabernash given for severe pain, she swallowed tabs w/water.
[2022-10-07] VITALS: BP_SYST 126
[2022-10-07] MEDS: traMADol HCL HCL 50 MG TABLET (ULTRAM) PO PRN (00:19)
--- NOTE | 2022-10-07 00:19 | NUR ---
Ultram patient reporting moderate pain and administered Ultram as ordered
[2022-10-07] MEDS: NORMAL SALINE 5 ML DISP.SYRIN IVF SCH ×2 (00:20→07:03)
[2022-10-07 05:16] LABS: BASOPHILS % (AUTO) 0.4 % (0.0-2.0); EOSINOPHILS # (AUTO) 0.2 K/uL (0.0-0.4); EOSINOPHILS % (AUTO) 3.2 % (0.0-4.0); HEMATOCRIT 36.2 % (36-48); HEMOGLOBIN 12.5 g/dL (12.0-16.0); LYMPHOCYTES # (AUTO) 0.9 K/uL (1.0-5.5); MEAN CORPUSCULAR HEMOGLOBIN 32 pg (27-31); MEAN CORPUSCULAR HGB CONC 35 % (32-36); MEAN CORPUSCULAR VOLUME 93 fL (79.0-98.0); MONOCYTES # (AUTO) 0.9 K/uL (0.0-1.0); MONOCYTES % (AUTO) 13.2 % (1.7-9.3); NEUTROPHILS # (AUTO) 5.1 K/uL (1.8-7.7); NEUTROPHILS % (AUTO) 71.2 % (40.0-70.0); PLATELET COUNT (AUTO) 272 K/uL (130-430); RED BLOOD CELL COUNT(AUTO) 3.91 MIL/uL (4.2-6.2); RED CELL DISTRIBUTION WIDTH 13.4 % (9.0-15.0); WHITE BLOOD COUNT (AUTO) 7.1 K/uL (4.8-10.8)
[2022-10-07 05:59] LABS: ALANINE AMINOTRANSFERASE 35 U/L (12-78); ALBUMIN 2.5 g/dL (3.4-4.8); ANION GAP 8 (5-15); ASPARTATE AMINOTRANSFERASE 55 U/L (10-37); CALCIUM 7.8 mg/dL (8.4-11.0); CHLORIDE 97 mmol/L (98-107); CREATININE 0.51 mg/dL (0.55-1.30); GLUCOSE 81 mg/dL (70-99); TOTAL BILIRUBIN 0.8 mg/dL (0.0-1.0); UREA NITROGEN, BLOOD 14 mg/dL (8-21)
[2022-10-07 06:37] LABS: INR 1.2 (0.8-1.2); PROTHROMBIN TIME 12.2 SECS (9.5-12.5)
--- NOTE | 2022-10-07 07:15 | NUR ---
closing note Patient resting in comfortable position, no distress. visiting at bedside. Endorsed care, stable
--- NOTE | 2022-10-07 07:30 | NUR ---
Report received from shiftman RN for continuity of care. Patient in stable condition.
[2022-10-07 08:00] VITALS: BP_SYST 135
[2022-10-07] MEDS: METOPROLOL SUCCINATE 25 MG TAB.SR.24H (TOPROL XL) PO SCH (08:24)
[2022-10-07] MEDS: hydrALAZINE HCL 10 MG TABLET PO SCH (08:25)
[2022-10-07] MEDS: LIDOCAINE PATCH 5% 1 EA TP SCH (08:25)
--- NOTE | 2022-10-07 08:25 | NUR ---
PHYSICAL THERAPY CO-SIGN The Physical Therapy Progress Notes documented by Consumer Safety Inspector have been reviewed. Reviewed/Co-Signed by: Brian Schwab Documentation Done by:RONAK ORLANDO Addendum: 10/07/22 at 0882 by Brian Schwab PT Amended: Links added.
[2022-10-07] MEDS: HYDROcodone/ACETAMIN 5-325 MG TAB (NORCO/ VICODIN) PO PRN (09:03)
--- NOTE | 2022-10-07 09:06 | NUR ---
Patient c/o bilateral calf pain to PT when ambulating. Assessed patient and cool skin, pulses noted. Spoke with Dr. Higgins. New orders noted and carried out. Pain medication given to patient as indicated.
[2022-10-07] MEDS ORDERED: WARFARIN SODIUM 4 MG TABLET PO ONE (11:00)
[2022-10-07 11:10] VITALS: BP_SYST 123
--- NOTE | 2022-10-07 11:42 | NUR ---
US of legs in progress
--- NOTE | 2022-10-07 11:42 | NUR ---
KURT Beaulieu came to talk to patient and family. Family and patient agreeable to transfer to [facility] D[facility] Moses for rehab.
[2022-10-07 12:27] VITALS: BP_SYST 136
--- NOTE | 2022-10-07 12:35 | NUR ---
Report given to nurse at [facility] regarding patient transport to [facility] at . Patient transport scheduled for 1 pm with ambulance. Patient aware of transfer of care.
--- NOTE | 2022-10-07 13:03 | NUR ---
PHYSICAL THERAPY CO-SIGN The Physical Therapy Progress Notes documented by Economics Lecturer have been reviewed. Reviewed/Co-Signed by: Brian Schwab Documentation Done by:RONAK ORLANDO Addendum: 10/07/22 at 1303 by Brian Schwab PT Amended: Links added.
--- NOTE | 2022-10-07 13:15 | NUR ---
Report given to FABIAN Rubi at [facility] in [place]. Patient stable at the moment. aware.
--- NOTE | 2022-10-07 13:16 | NUR ---
Ambulance here to pick patient up. D/C paperwork and transfer packet given. Patient aware of transfer. Assisted with transferring patient from bed to [facility]. No active distress noted. All belongings taken by . Report given to ambulance. Patient respiration even and unlabored. No shortness of breath.
--- NOTE | 2022-10-07 13:16 | NUR ---
IV kept in place per facility request. vehicle monitor technician taken off and returned.
[2022-10-07 13:33] VITALS: BP_SYST 124
== END 2022-10-07 14:00 | disposition home health service (06) | DRG 511 ==
LOC: SED 10:54 → STU 16:22
PROVIDERS: ADMIT Specialist; ATTEND Specialist
PROC: 0QS Lower Bones, Reposition (ICD-10-PCS; 2022-10-04)
PROC: 0PSK04Z Reposition Right Ulna with Internal Fixation Device, Open Approach (ICD-10-PCS; principal; 2022-10-04 13:12)
DX: S42.391A Other fracture of shaft of right humerus, initial encounter for closed fracture (principal); I48.20 Chronic atrial fibrillation, unspecified; S32.019A Unspecified fracture of first lumbar vertebra, initial encounter for closed fracture; S52.021A Displaced fracture of olecranon process without intraarticular extension of right ulna, initial encounter for closed fracture; M81.0 Age-related osteoporosis without current pathological fracture; M06.9 Rheumatoid arthritis, unspecified; I10 Essential (primary) hypertension; W01.0XXA Fall on same level from slipping, tripping and stumbling without subsequent striking against object, initial encounter; E03.9 Hypothyroidism, unspecified; I25.10 Atherosclerotic heart disease of native coronary artery without angina pectoris; Z96.651 Presence of right artificial knee joint; Z90.710 Acquired absence of both cervix and uterus; Z87.891 Personal history of nicotine dependence; Z79.01 Long term (current) use of anticoagulants; Z79.891 Long term (current) use of opiate analgesic; Z79.899 Other long term (current) drug therapy; Y93.89 Activity, other specified; Y92.89 Other specified places as the place of occurrence of the external cause; Y99.8 Other external cause status
CPT/HCPCS: 36415; 71045; 72131; 73502; 76001; 76376; 80048; 80053; 81000; 83880; 84484; 85025; 85610-TC; 85730-TC; 86886; 86900; 86901; 87081; 87086; 93005; 93306; 93923; 94010; 94760; 96374; 97110-GP; 97530-GP; 99285; G0378; J0131; J0696; J1100; J1885; J1940; J2001; J2405; J2704; J3430; J3465; J3480; J3490; J7050; J7060; J7120

== ENCOUNTER 2023-01-09 05:15 | Day surgery (SDC) | payer OTHER ==
[~2023-01-09] VITALS: Ht 157.5 cm; Wt 63.5 kg
[~2023-01-09 05:15] MED LIST changes: +ACT35 PO; +HYDR-4037 PO; +LEVO25TA7 PO; +Lidocaine Patch 5% TP; +METO25TA3 PO; +WARF4TAB72 PO
[2023-01-09] MEDS ORDERED: ACETAMINOPHEN 500 MG TABLET ONE (05:27)
[2023-01-09 06:36] VITALS: O2SAT 99
[2023-01-09] MEDS ORDERED: ACETAMINOPHEN 500 MG TABLET PO ONE (07:00)
[2023-01-09] MEDS ORDERED: ceFAZolin SODIUM 2 GM in D5W 100 ML IV ONE (07:00)
[2023-01-09] MEDS ORDERED: SEVOFLURANE 15 MIN GAS INH ONE (08:49)
[2023-01-09] MEDS ORDERED: PROPOFOL 200MG/ 20ML VIAL (DIPRIVAN) IV ONE (08:49)
[2023-01-09] MEDS ORDERED: LIDOCAINE/EPI 1% 1:100000 20 ML VIAL ONE (08:49)
[2023-01-09] MEDS ORDERED: ONDANSETRON HCL 4 MG/2 ML VIAL ONE (08:49)
[2023-01-09] MEDS ORDERED: LR 1,000 ML IV.SOLN IV ONE (08:49)
[2023-01-09] MEDS ORDERED: KETOROLAC TROMETHAMINE 30 MG VIAL ONE (08:49)
[2023-01-09 09:16] LABS: INR 1.9 (0.8-1.2); PROTHROMBIN TIME 18.9 SECS (9.5-12.5)
[2023-01-09] MEDS ORDERED: KETOROLAC TROMETHAMINE 30 MG VIAL IVP PRN (09:30)
[2023-01-09] MEDS ORDERED: ONDANSETRON HCL 4 MG/2 ML VIAL IVP PRN (09:30)
[2023-01-09] MEDS ORDERED: HYDROmorphone 1 MG/ML INJ. CARTRIDGE IVP PRN (09:30)
[2023-01-09] MEDS ORDERED: ACETAMINOPHEN I.V. 1000 MG 0 ML IV ONE (09:54)
[2023-01-09] MEDS ORDERED: ACETAMINOPHEN I.V. 1000 MG 100 ML IV ONE (10:00)
[2023-01-09 12:42] VITALS: BP_SYST 133; PULSE 68; RESP 16
== END 2023-01-09 11:47 | disposition home or self-care (01) ==
LOC: SDS 05:15 → SMU 05:15 → SDS 11:47
PROVIDERS: ATTEND Student in an Organized Health Care Education/Training Program
DX: T84.89XA Other specified complication of internal orthopedic prosthetic devices, implants and grafts, initial encounter (principal); L92.9 Granulomatous disorder of the skin and subcutaneous tissue, unspecified; I10 Essential (primary) hypertension; I48.91 Unspecified atrial fibrillation; E78.5 Hyperlipidemia, unspecified; E03.9 Hypothyroidism, unspecified; M81.0 Age-related osteoporosis without current pathological fracture; Y82.8 Other medical devices associated with adverse incidents
CPT/HCPCS: 87081; 93005; 11044; 20680; 85610; 86886; 86900; 86901; 36415; 76000; J1885; J2405; J2704; J7060; J7120; J0131